=== PATIENT | female | born 1990 | race Caucasian/White ===

== ENCOUNTER 2020-05-01 19:31 | Outpatient (CLI) | payer MEDICAID ==
[~2020-05-01] VITALS: Ht 165.1 cm; Wt 84.8 kg
[~2020-05-01 19:31] MED LIST: trazadone; trileptal
[2020-05-01 20:00] VITALS: BP 132/66
[2020-05-01 20:06] LABS: BASOPHILS # (AUTO) 0.01 x10^3/uL (0-0.1); BASOPHILS % (AUTO) 0 % (0-1); EOSINOPHILS # (AUTO) 0.28 x10^3/uL (0-0.4); EOSINOPHILS % (AUTO) 3 % (1-7); LYMPHOCYTES % (AUTO) 18 % (22-44); MD NO; MEAN CORPUSCULAR HEMOGLOBIN 28.1 pg (27.0-34.8); MEAN CORPUSCULAR HGB CONC 33.4 g/dL (32.4-35.8); MEAN CORPUSCULAR VOLUME 83.9 fL (80-100); MEAN PLATELET VOLUME 8.2 fL (7.4-10.4); MONOCYTES # (AUTO) 0.83 x10^3/uL (0.2-0.8); MONOCYTES % (AUTO) 8 % (2-9); NEUTROPHILS # (AUTO) 7.21 x10^3/uL (1.8-6.8); NEUTROPHILS % (AUTO) 71 % (42-75); PLATELET COUNT 284 x10^3/uL (130-400); RED BLOOD COUNT 3.51 x10^6/uL (3.82-5.3); RED CELL DISTRIBUTION WIDTH 13.3 % (9.6-15.2)
[2020-05-01 20:13] LABS: MICROSCOPIC INDICATED
[2020-05-01 20:16] LABS: ALANINE AMINOTRANSFERASE 13 U/L (12-78); ALBUMIN 2.5 g/dL (3.4-5.0); ANION GAP 9 mmol/L (5-15); CALCIUM 8.2 mg/dL (8.5-10.1); CHLORIDE 113 mmol/L (98-107)
[2020-05-01 20:18] LABS: ALKALINE PHOSPHATASE 175 U/L (45-117); BILIRUBIN,TOTAL 0.2 mg/dL (0.2-1.0); TOTAL PROTEIN 6.6 g/dL (6.4-8.2)
[2020-05-01 20:19] LABS: BILIRUBIN, DIRECT < 0.1 mg/dL (0.1-0.2)
[2020-05-01 20:22] LABS: AMPHETAMINE SCREEN, URINE Negative (Negative); BARBITURATE SCREEN, URINE Negative (Negative); BENZODIAZEPINE SCREEN, URINE Negative (Negative); CANNABINOID SCREEN, URINE Negative (Negative); COCAINE SCREEN, URINE Negative (Negative); METHADONE SCREEN, URINE Negative (Negative); OPIATE SCREEN, URINE Negative (Negative); PROTEIN/CREATININE RATIO,URINE 181 (0-200); TOTAL PROTEIN,URINE RANDOM 19 mg/dL (0-12)
== END 2020-05-01 20:56 | disposition home or self-care (01) ==
LOC: LDOP 19:31
PROVIDERS: ATTEND Obstetrics & Gynecology
DX: O26.893 Other specified pregnancy related conditions, third trimester (principal); M79.89 Other specified soft tissue disorders; Z3A.35 35 weeks gestation of pregnancy
CPT/HCPCS: 36415; 59025; 80053; 80307; 81001; 82248; 82570; 84156; 84550; 85025; 99211; G0463

== ENCOUNTER 2020-05-23 13:20 | Inpatient (IN) | payer MEDICAID ==
[~2020-05-23] VITALS: Ht 162.6 cm; Wt 95.9 kg
[2020-05-23] MEDS ORDERED: OXYTOCIN 30U/ 0.9% NaCL 500ML 500 ML IV ONE (13:41)
[2020-05-23] MEDS ORDERED: NEWBORN KIT ONE (13:48)
[2020-05-23] MEDS ORDERED: OXYTOCIN 30U/ 0.9% NaCL 500ML 500 ML ONE ×2 (13:48→18:22)
[2020-05-23] MEDS ORDERED: FENTANYL PF 100 MCG/2ML IV PRN (14:00)
[2020-05-23] MEDS ORDERED: METOCLOPRAMIDE 5 MG/ML, 2ML IVPush PRN (14:00)
[2020-05-23] MEDS ORDERED: FENTANYL PF 100 MCG/2ML IVPush PRN (14:00)
[2020-05-23] MEDS ORDERED: TERBUTALINE 1 MG/ML, 1ML IVPush PRN (14:00)
[2020-05-23] MEDS ORDERED: SODIUM CITRATE/CITRIC ACID 30 ML UDC PO PRN (14:00)
[2020-05-23] MEDS ORDERED: ONDANSETRON 2MG/ML, 2ML IVPush PRN (14:00)
[2020-05-23] MEDS ORDERED: TERBUTALINE 1 MG/ML, 1ML SQ PRN (14:00)
[2020-05-23 14:19] LABS: AMPHETAMINE SCREEN, URINE Negative (Negative); BARBITURATE SCREEN, URINE Negative (Negative); BENZODIAZEPINE SCREEN, URINE Negative (Negative); CANNABINOID SCREEN, URINE Negative (Negative); COCAINE SCREEN, URINE Negative (Negative); METHADONE SCREEN, URINE Negative (Negative); OPIATE SCREEN, URINE Negative (Negative)
[2020-05-23] MEDS ORDERED: MISOPROSTOL 25 MCG TABLET ONE (14:26)
[2020-05-23] MEDS ORDERED: MISOPROSTOL 25 MCG TABLET VG PRN (14:30)
[2020-05-23 14:36] LABS: BASOPHILS # (AUTO) 0.02 x10^3/uL (0-0.1); BASOPHILS % (AUTO) 0 % (0-1); EOSINOPHILS # (AUTO) 0.16 x10^3/uL (0-0.4); EOSINOPHILS % (AUTO) 2 % (1-7); LYMPHOCYTES # (AUTO) 1.63 x10^3/uL (1-3.4); LYMPHOCYTES % (AUTO) 19 % (22-44); MD NO; MEAN CORPUSCULAR HEMOGLOBIN 28.1 pg (27.0-34.8); MEAN CORPUSCULAR HGB CONC 33.3 g/dL (32.4-35.8); MEAN CORPUSCULAR VOLUME 84.4 fL (80-100); MONOCYTES # (AUTO) 0.62 x10^3/uL (0.2-0.8); MONOCYTES % (AUTO) 7 % (2-9); NEUTROPHILS % (AUTO) 72 % (42-75); PLATELET COUNT 303 x10^3/uL (130-400); RED BLOOD COUNT 3.53 x10^6/uL (3.82-5.3); RED CELL DISTRIBUTION WIDTH 15.1 % (9.6-15.2)
[2020-05-23] MEDS ORDERED: sub (16:12)
[2020-05-23] MEDS ORDERED: subutex PO (16:12)
[2020-05-23] MEDS ORDERED: OLAN10VI PO (16:12)
[2020-05-23] MEDS ORDERED: OXYTOCIN 30U/ 0.9% NaCL 500ML 500 ML IV PRN (18:13)
[2020-05-23] MEDS ORDERED: FENTANYL/BUPIV./NS/PF 250 ML EPIDCONT ONE (19:04)
[2020-05-23] MEDS ORDERED: BUPIVACAINE 0.25% ONE (19:18)
[2020-05-23] MEDS ORDERED: LIDOCAINE/PF 1.5%-EPI 1:200K, 30ML ONE (19:24)
[2020-05-23] MEDS: LACTATED RINGERS 1,000 ML IV SCH (20:03)
[2020-05-23 20:32] VITALS: BP 133/66
[2020-05-23] MEDS: OLANZAPINE 2.5 MG TABLET PO SCH (20:46)
[2020-05-24] MEDS ORDERED: TERBUTALINE 1 MG/ML, 1ML ONE ×2 (00:41→00:46)
[2020-05-24] MEDS ORDERED: SODIUM CITRATE/CITRIC ACID 30 ML UDC ONE (00:45)
[2020-05-24] MEDS ORDERED: METOCLOPRAMIDE 5 MG/ML, 2ML ONE (00:45)
[2020-05-24] MEDS: D5%-LACTATED RINGERS 1,000 ML IV SCH ×2 (02:24→07:31)
[2020-05-24] MEDS: LACTATED RINGERS 1,000 ML IV SCH ×2 (02:24→07:34)
[2020-05-24] MEDS: BUPRENORPHINE HCL 2 MG TAB.SUBL SL SCH (07:28)
[2020-05-24] MEDS ORDERED: OXYTOCIN 30U/ 0.9% NaCL 500ML 500 ML ONE (07:51)
[2020-05-24] MEDS: OXYTOCIN 30U/ 0.9% NaCL 500ML 500 ML IV SCH ×2 (12:23→22:23)
[2020-05-24] MEDS ORDERED: GLYCERIN ADULT SUPP PR PRN (12:30)
[2020-05-24] MEDS ORDERED: ONDANSETRON 2MG/ML, 2ML IV PRN (12:30)
[2020-05-24] MEDS ORDERED: MISOPROSTOL 200 MCG TABLET PR PRN (12:30)
[2020-05-24] MEDS ORDERED: SIMETHICONE 80 MG CHEW TAB PO PRN (12:30)
[2020-05-24] MEDS ORDERED: BISACODYL 10 MG SUPP PR PRN (12:30)
[2020-05-24] MEDS ORDERED: METHYLERGONOVINE 0.2 MG/ML IM PRN (12:30)
[2020-05-24] MEDS ORDERED: IBUPROFEN 600 MG TABLET ONE (14:33)
[2020-05-24] MEDS ORDERED: IBUPROFEN 800 MG TABLET ONE (14:36)
[2020-05-24] MEDS: IBUPROFEN 800 MG TABLET PO PRN ×2 (14:36→22:50)
[2020-05-24 15:36] VITALS: BP 119/65
[2020-05-24 20:38] LABS: MEAN CORPUSCULAR HEMOGLOBIN 27.9 pg (27.0-34.8); MEAN CORPUSCULAR HGB CONC 32.5 g/dL (32.4-35.8); MEAN PLATELET VOLUME 7.9 fL (7.4-10.4); PLATELET COUNT 254 x10^3/uL (130-400); RED BLOOD COUNT 3.78 x10^6/uL (3.82-5.3); RED CELL DISTRIBUTION WIDTH 15.7 % (9.6-15.2)
[2020-05-24 20:50] VITALS: BP 115/75
[2020-05-24] MEDS: DOCUSATE 100 MG CAPSULE PO PRN (20:59)
[2020-05-24] MEDS: OLANZAPINE 2.5 MG TABLET PO SCH (21:00)
[2020-05-24 21:03] LABS: BASOPHILS % (AUTO) 0 % (0-1); EOSINOPHILS # (AUTO) 0.08 x10^3/uL (0-0.4); EOSINOPHILS % (AUTO) 0 % (1-7); LYMPHOCYTES # (AUTO) 1.52 x10^3/uL (1-3.4); LYMPHOCYTES % (AUTO) 8 % (22-44); MD SCAN; MONOCYTES # (AUTO) 1.15 x10^3/uL (0.2-0.8); MONOCYTES % (AUTO) 6 % (2-9); NEUTROPHILS # (AUTO) 15.41 x10^3/uL (1.8-6.8); NEUTROPHILS % (AUTO) 85 % (42-75)
[2020-05-25 00:30] VITALS: BP 135/80
[2020-05-25 04:00] VITALS: BP 119/77
[2020-05-25] MEDS: IBUPROFEN 800 MG TABLET PO PRN ×3 (06:30→22:58)
[2020-05-25 07:30] VITALS: BP 121/82
[2020-05-25] MEDS: BUPRENORPHINE HCL 2 MG TAB.SUBL SL SCH (08:08)
[2020-05-25] MEDS: DOCUSATE 100 MG CAPSULE PO PRN ×2 (08:08→21:04)
[2020-05-25] MEDS: PRENATAL VIT/IRON/FA 1 EACH TABLET PO SCH (08:08)
[2020-05-25] MEDS: OXYTOCIN 30U/ 0.9% NaCL 500ML 500 ML IV SCH ×2 (08:23→18:23)
[2020-05-25 12:30] VITALS: BP 120/72
[2020-05-25 20:30] VITALS: BP 133/86
[2020-05-25] MEDS: OLANZAPINE 2.5 MG TABLET PO SCH (21:04)
[2020-05-26] MEDS: OXYTOCIN 30U/ 0.9% NaCL 500ML 500 ML IV SCH ×2 (04:23→14:23)
[2020-05-26 09:00] VITALS: BP 134/76
[2020-05-26] MEDS: OLANZAPINE 2.5 MG TABLET PO SCH (09:00)
[2020-05-26] MEDS: IBUPROFEN 800 MG TABLET PO PRN (09:31)
[2020-05-26] MEDS: PRENATAL VIT/IRON/FA 1 EACH TABLET PO SCH (09:31)
[2020-05-26] MEDS: DOCUSATE 100 MG CAPSULE PO PRN (09:31)
[2020-05-26] MEDS: BUPRENORPHINE HCL 2 MG TAB.SUBL SL SCH (09:32)
[2020-05-26] MEDS ORDERED: MEASLES,MUMPS&RUBELLA VACC/PF 0.5 ML SQ-VACC ONE ×2 (14:18→14:30)
== END 2020-05-26 14:30 | disposition home or self-care (01) | DRG 806 ==
LOC: LDOP 13:20 → LDIP 13:41 → 2NW 05-24 14:57
PROVIDERS: ADMIT Obstetrics & Gynecology; ATTEND Obstetrics & Gynecology
PROC: 10E0XZZ Delivery of Products of Conception, External Approach (ICD-10-PCS; principal; 2020-05-25)
PROC: 3E033VJ Introduction of Other Hormone into Peripheral Vein, Percutaneous Approach (ICD-10-PCS; 2020-05-25)
DX: O76 Abnormality in fetal heart rate and rhythm complicating labor and delivery (principal); O99.324 Drug use complicating childbirth; Z37.0 Single live birth; Z3A.39 39 weeks gestation of pregnancy; F15.10 Other stimulant abuse, uncomplicated; F41.9 Anxiety disorder, unspecified; F32.9 Major depressive disorder, single episode, unspecified; F43.10 Post-traumatic stress disorder, unspecified; Z20.828 Contact with and (suspected) exposure to other viral communicable diseases; Z82.49 Family history of ischemic heart disease and other diseases of the circulatory system
CPT/HCPCS: 36415; J3490; J7121; 80307; 85025; 86592; 86850; 86900; 87635; 88307; G0378; J2590; J3010; J7120

== ENCOUNTER 2021-07-29 01:04 | Emergency (ER) | payer MEDICAID ==
[~2021-07-29] VITALS: Ht 162.6 cm; Wt 87.5 kg
[2021-07-29 02:47] VITALS: BP 127/65
== END 2021-07-29 02:52 | disposition home or self-care (01) ==
LOC: ED 02:50
DX: N30.01 Acute cystitis with hematuria (principal); R30.0 Dysuria; R10.30 Lower abdominal pain, unspecified; F17.210 Nicotine dependence, cigarettes, uncomplicated; R11.0 Nausea